=== PATIENT | male | born 1965 | race Caucasian/White ===

== ENCOUNTER → 2019-02-07 | Outpatient (CLI) | payer OTHER ==
--- NOTE | 2019-02-07 17:29 | PCVCIMAG ---
APPROVED REPORT Study performed: 02/07/2019 10:09:54 Exam: Stress Echocardiogram Indication: Hypertension, Hyperlipidemia Patient Location: Echo lab Stress Nurse: Cristina Lopez RN Status: routine Ht: 6 ft 1 in HR: 69 bpm BP: 122/90 mmHg Rhythm: NSR Medical History Medical History: Hyperlipidemia, HTN, Family history of CAD Exercise History: Physically active Procedure The patient underwent an Exercise Stress Test using the Hugh Protocol. Blood pressure, heart rate, and EKG were monitored. An Echocardiogram was performed by mobile service rv technician in four stages in quad fashion. At peak stress, four selected images were obtained and placed side by side with resting images for comparison. Stress Test Details Stress Test: Exercise stress testing was performed using a Hugh protocol. HR Resting HR: 69 bpmMax Heart Rate (APMHR): 167 bpm Max HR Achieved: 160 bpmTarget HR (85% APMHR): 141 bpm % of APMHR: 95 Recovery HR: 88 bpm HR response to stress: Normal HR response to stress BP Resting BP: 122/90 mmHg Max BP: 167/80 mmHg Recovery BP: 142/80 mmHg BP response to stress: Normal blood pressure response to stress. ECG Resting ECG: Sinus Rhythm Stress ECG: Sinus Rhythm Recovery ECG: Sinus Rhythm Clinical Reason for Termination: Maximal effort Exercise duration: 12 min sec Highest Stage Achieved: Stage 4: 4.2 mph at 16% grade. Exercise capacity: 13.70 METs Overall Exercise Capacity for Age: Good Pre-Stress Echo The resting Echocardiogram showed normal left ventricular contractility with an estimated Ejection Fraction of about 55-60%. Normal wall motion in all segments on baseline images. Post-Stress Echo The stress Echocardiogram showed normal left ventricular contractility with an estimated Ejection Fraction of about 60-65%. Normal augmentation of wall motion in all segments on post stress images. Clinical No clinical or ECG evidence for ischemia. Conclusion Clinical Response: Non-ischemic Exercise Capacity: Superior Stress ECG Response: Non-ischemic Stress Echo Images: Non-ischemic The left ventricle is normal in size and wall thickness in both the rest and stress images. Other Information Study Quality: Good <Conclusion> The left ventricle is normal in size and wall thickness in both the rest and stress images.
== END | disposition home or self-care (01) ==
LOC: PCVCIMAG 09:46
PROVIDERS: ATTEND Internal Medicine Cardiovascular Disease
DX: I10 Essential (primary) hypertension (principal); R07.9 Chest pain, unspecified; R93.1 Abnormal findings on diagnostic imaging of heart and coronary circulation; E78.5 Hyperlipidemia, unspecified; Z82.49 Family history of ischemic heart disease and other diseases of the circulatory system
CPT/HCPCS: 93325; 93351

== ENCOUNTER → 2019-02-19 | Outpatient (CLI) | payer OTHER ==
--- NOTE | 2019-02-19 16:33 | PCVCIMAG ---
APPROVED REPORT Indications Bruit Doppler Spectral Velocity Analysis PSV / EDVPSV / EDV ECA (R) 77 / 12 cm/sECA (L) 77 / 12 cm/s dICA (R) 48 / 18 cm/sdICA (L) 41 / 17 cm/s Heather (R) 64 / 29 cm/smICA (L) 68 / 27 cm/s pICA (R) 56 / 21 cm/spICA (L) 38 / 12 cm/s Bulb (R) 64 / 17 cm/sBulb (L) 69 / 25 cm/s dCCA (R) 82 / 19 cm/sdCCA (L) 91 / 23 cm/s mCCA (R) 95 / 23 cm/smCCA (L) 98 / 23 cm/s Vert (R) 36 / 12 cm/sVert (L) 36 / 14 cm/s ICA/CCA 0.78ICA/CCA 0.75 Basic Measurements Blood Pressure: Pulses: Right Left RightLeft Brachial(Sitting) 120/06ubIx764/78mmHgTemporal Real Time B-Mode Imaging Vert. (R)AntegradeVert. (L)Antegrade Findings The right carotid bulb has no significant plaque. The right proximal internal carotid artery shows no significant stenosis. The right common carotid artery shows no significant stenosis. The right external carotid artery shows no significant stenosis. The left carotid bulb has no significant plaque. The left proximal internal carotid artery shows no significant stenosis. The left common carotid artery shows no significant stenosis. The left external carotid artery shows no significant stenosis. Conclusion 1. No significant stenosis involving either carotid artery. 2. Antegrade vertebral flow.
== END | disposition home or self-care (01) ==
LOC: PCVCIMAG 14:49
PROVIDERS: ATTEND Internal Medicine Cardiovascular Disease
DX: E78.5 Hyperlipidemia, unspecified (principal); R09.89 Other specified symptoms and signs involving the circulatory and respiratory systems
CPT/HCPCS: 93880